=== PATIENT | female | born 1975 | race Hispanic/Latino ===

== ENCOUNTER 2017-03-12 23:36 | Emergency (ER) | payer MEDICARE ==
[~2017-03-12 23:36] MED LIST: LEVE500T8 PO
[2017-03-13 00:53] LABS: APPEARANCE,URINE Cloudy (CLEAR); BILIRUBIN,URINE Negative (NEGATIVE); COLOR,URINE Yellow (YELLOW); GLUCOSE, URINE (UA) >=1000 mg/dL (NEGATIVE); KETONES,URINE Negative (NEGATIVE); LEUKOCYTE ESTERASE ,URINE Small (NEGATIVE); NITRATE,URINE Positive (NEGATIVE); OCCULT BLOOD,URINE Negative (NEGATIVE); PH,URINE 6.5 (5.0-8.0); PROTEIN,URINE Negative (NEGATIVE); UROBILINOGEN,URINE 0.2 mg/dL (0.2-1.0)
[2017-03-13 01:13] LABS: BACTERIA,URINE Many /HPF (None Seen); RBC,URINE 0-1 /HPF (0-1); SQUAMOUS EPITHELIAL CELL,UR Few /LPF (0-2)
== END 2017-03-13 01:32 | disposition home or self-care (01) ==
LOC: EDH 23:36
DX: O23.41 Unspecified infection of urinary tract in pregnancy, first trimester (principal); O24.311 Unspecified pre-existing diabetes mellitus in pregnancy, first trimester; E11.9 Type 2 diabetes mellitus without complications; O10.911 Unspecified pre-existing hypertension complicating pregnancy, first trimester; Z79.4 Long term (current) use of insulin; Z3A.12 12 weeks gestation of pregnancy; Z88.6 Allergy status to analgesic agent; Z88.0 Allergy status to penicillin
CPT/HCPCS: 81001

== ENCOUNTER 2023-08-02 15:31 | Emergency (ER) | payer OTHER, MEDICARE ==
[~2023-08-02] VITALS: Ht 160 cm; Wt 90.7 kg
[~2023-08-02 15:31] MED LIST changes: +LEVE-43 PO; -LEVE500T8 PO
[2023-08-02 16:01] LABS: BASOPHILS # (AUTO) 0.05 K/uL (0.00-0.20); BASOPHILS % (AUTO) 0.4 % (0.0-5.0); EOSINOPHILS # (AUTO) 0.03 K/uL (0.00-0.70); EOSINOPHILS % (AUTO) 0.3 % (0.0-8.0); HEMATOCRIT 34.5 % (36-48); IMMATURE GRANULOCYTE ABSOLUTE 0.05 K/uL (0-1); LYMPHOCYTES # (AUTO) 0.4 K/uL (1.0-4.8); LYMPHOCYTES % (AUTO) 3.9 % (21.0-51.0); MEAN CORPUSCULAR HEMOGLOBIN 27.4 pg (27.0-33.0); MEAN CORPUSCULAR HGB CONC 35.4 g/dL (32.0-36.0); MEAN CORPUSCULAR VOLUME 77.5 fL (79-99); MONOCYTES # (AUTO) 0.3 K/uL (0.1-1.0); MONOCYTES % (AUTO) 2.5 % (3.0-13.0); NEUTROPHILS # (AUTO) 10.5 K/uL (1.8-7.7); NEUTROPHILS % (AUTO) 92.5 % (40.0-77.0); PLATELET COUNT (AUTO) 215 K/uL (130-400); RED BLOOD CELL COUNT(AUTO) 4.45 MIL/uL (4.00-5.50); RED CELL DISTRIBUTION WIDTH 11.5 % (11.0-15.5); WHITE BLOOD COUNT (AUTO) 11.3 K/uL (4.8-10.8)
[2023-08-02] MEDS: LACTATED RINGERS 1000ML 1,000 ML IV ONE (16:06)
[2023-08-02] MEDS: ONDANSETRON 4MG INJ IVP ONE (16:06)
[2023-08-02 16:21] LABS: CARBON DIOXIDE 23 mmol/L (21-32); CHLORIDE 96 mmol/L (101-111); CREATINE KINASE, TOTAL 26 U/L (21-232); CREATININE 1.3 mg/dL (0.5-1.0); GLOMERULAR FILTR. RATE CALC 52 mL/min (>90); POTASSIUM 4.8 mmol/L (3.5-5.1); SODIUM SERUM 129 mmol/L (136-145); UREA NITROGEN, BLOOD 19 mg/dL (7-18)
[2023-08-02 16:47] LABS: GLUCOSE,RANDOM 597 mg/dL (70-105)
[2023-08-02 17:07] LABS: ABG OXYGEN SATURATION 36.8 % (95.0-99.0); BASE EXCESS,VENOUS BLOOD GAS -5.3 (-2.0-3.0); DEVICE COMMENT ROOM AIR; HCO3,VENOUS BLOOD GAS 19.9 (21.0-28.0); PCO2,VENOUS BLOOD GAS 38 (32-45); PH,VENOUS BLOOD GAS 7.339 (7.350-7.450); PO2,VENOUS BLOOD GAS 21.3 mmHg (35.0-45.0)
[2023-08-02] MEDS: 0.9%NACL 1000ML 1,000 ML IV ONE (18:10)
[2023-08-02] MEDS: INSULIN HUMULIN R 100 UNIT/ML 3ML IV ONE (18:12)
[2023-08-02 18:24] VITALS: BP 138/62; PULSE 95; RESP 18
[2023-08-02] MEDS: INSULIN HUMULIN R 100 UNIT/ML 3ML SQ ONE (18:33)
== END 2023-08-02 20:09 | disposition home or self-care (01) ==
LOC: EDH 15:31
DX: E11.65 Type 2 diabetes mellitus with hyperglycemia (principal); Z88.0 Allergy status to penicillin; Z88.2 Allergy status to sulfonamides; Z88.5 Allergy status to narcotic agent
CPT/HCPCS: 99284; 96374; 96361; 96375; 82947; 82435; 82550; 84132; 84295; 80048; 82803; 83690; 85025; 83605; 82010; 36415; 96372; 93005; 36600; 82948 ×3; J1815 ×2; J7120; J7030; J2405

== ENCOUNTER 2023-08-04 12:43 | Emergency (ER) | payer OTHER, MEDICARE ==
[~2023-08-04] VITALS: Ht 160 cm; Wt 74.8 kg
[2023-08-04 13:33] LABS: BASOPHILS # (AUTO) 0.03 K/uL (0.00-0.20); BASOPHILS % (AUTO) 0.5 % (0.0-5.0); EOSINOPHILS % (AUTO) 1.5 % (0.0-8.0); HEMATOCRIT 27.6 % (36-48); IMMATURE GRANULOCYTE ABSOLUTE 0.08 K/uL (0-1); LYMPHOCYTES # (AUTO) 1.1 K/uL (1.0-4.8); LYMPHOCYTES % (AUTO) 16.1 % (21.0-51.0); MEAN CORPUSCULAR HEMOGLOBIN 27.8 pg (27.0-33.0); MEAN CORPUSCULAR HGB CONC 34.8 g/dL (32.0-36.0); MONOCYTES # (AUTO) 0.6 K/uL (0.1-1.0); MONOCYTES % (AUTO) 8.4 % (3.0-13.0); NEUTROPHILS # (AUTO) 4.8 K/uL (1.8-7.7); NEUTROPHILS % (AUTO) 72.3 % (40.0-77.0); PLATELET COUNT (AUTO) 201 K/uL (130-400); RED BLOOD CELL COUNT(AUTO) 3.45 MIL/uL (4.00-5.50); RED CELL DISTRIBUTION WIDTH 12.2 % (11.0-15.5); WHITE BLOOD COUNT (AUTO) 6.7 K/uL (4.8-10.8)
[2023-08-04 13:42] LABS: CREATININE 1.3 mg/dL (0.5-1.0); POTASSIUM 3.4 mmol/L (3.5-5.1)
[2023-08-04] MEDS: 0.9%NACL 1000ML 1,000 ML IV ONE (13:46)
[2023-08-04 13:57] VITALS: BP 136/77; PULSE 102; RESP 16; O2SAT 98
[2023-08-04 14:01] LABS: ABG OXYGEN SATURATION 68.7 % (95.0-99.0); BASE EXCESS,VENOUS BLOOD GAS -4.8 (-2.0-3.0); DEVICE COMMENT VENOUS; HCO3,VENOUS BLOOD GAS 18.3 (21.0-28.0); PCO2,VENOUS BLOOD GAS 29 (32-45); PH,VENOUS BLOOD GAS 7.414 (7.350-7.450); PO2,VENOUS BLOOD GAS 34.8 mmHg (35.0-45.0); VENT MODE, BG RA (ROOM AIR)
[2023-08-04] MEDS ORDERED: POTASSIUM BICARB/CIT AC 25 MEQ TABLET.EFF PO ONE (14:30)
[2023-08-04] MEDS ORDERED: 0.9%NACL 1000ML 1,000 ML IV ONE (14:30)
[2023-08-04 14:55] LABS: ADD UA MICROSCOPIC YES; APPEARANCE,URINE CLOUDY (CLEAR); BILIRUBIN,URINE 1 mg/dL (NEGATIVE); COLOR,URINE DARK-YELLOW (YELLOW); GLUCOSE, URINE (UA) >=1000 mg/dL (NEGATIVE); KETONES,URINE NEGATIVE (NEGATIVE); LEUKOCYTE ESTERASE ,URINE 500 Leu/uL (NEGATIVE); NITRATE,URINE 1+ (NEGATIVE); OCCULT BLOOD,URINE MODERATE (NEGATIVE); PROTEIN,URINE 70 mg/dL (NEGATIVE); UROBILINOGEN,URINE 6 mg/dL (0.2-1.0)
[2023-08-04 14:59] LABS: BACTERIA,URINE FEW /HPF (None Seen); MUCUS,URINE RARE LPF (None Seen); NON-SQUAMOUS EPITHELIAL CELL 1 /HPF (0-2); SQUAMOUS EPITHELIAL CELL,UR RARE /HPF (0-2); WBC CLUMP RARE /HPF (0-1); WBC,URINE 26-50 /HPF (0-1); YEAST,URINE BUDDING FEW /HPF (None Seen)
== END 2023-08-04 16:20 | disposition left against medical advice (07) ==
LOC: EDH 12:43
DX: E11.65 Type 2 diabetes mellitus with hyperglycemia (principal); F41.9 Anxiety disorder, unspecified; F32.A Depression, unspecified; G43.909 Migraine, unspecified, not intractable, without status migrainosus; Z90.49 Acquired absence of other specified parts of digestive tract; Z98.890 Other specified postprocedural states; Z88.0 Allergy status to penicillin; Z88.8 Allergy status to other drugs, medicaments and biological substances
CPT/HCPCS: 99285; 96360; 71045; 96361; 84484; 80048; 82803; 85025; 87077; 87088; 87186; 82010; 81001; 36415; 93005; 36600; J7030